=== PATIENT | female | born 1970 | race Caucasian/White ===

== ENCOUNTER → 2017-11-05 09:09 | Outpatient (CLI) | payer OTHER ==
[~2017-11-05 09:09] MED LIST: ENALAPRIL MALEA20 MG
== END | disposition home or self-care (01) ==
LOC: LAB 09:09
DX: I10 Essential (primary) hypertension (principal); G47.33 Obstructive sleep apnea (adult) (pediatric); D75.1 Secondary polycythemia; J30.9 Allergic rhinitis, unspecified; D50.8 Other iron deficiency anemias; D51.8 Other vitamin B12 deficiency anemias; D55.0 Anemia due to glucose-6-phosphate dehydrogenase [G6PD] deficiency; N18.2 Chronic kidney disease, stage 2 (mild); D63.1 Anemia in chronic kidney disease